=== PATIENT | female | born 1990 | race Caucasian/White ===

== ENCOUNTER 2023-06-08 00:41 | Emergency (ER) | payer MEDICARE, OTHER ==
[~2023-06-08] VITALS: Ht 154.9 cm; Wt 59.0 kg
[2023-06-08 01:43] VITALS: BP 146/93
== END 2023-06-08 02:25 | disposition home or self-care (01) ==
LOC: ER 00:41
DX: S61.212A Laceration without foreign body of right middle finger without damage to nail, initial encounter (principal); W26.0XXA Contact with knife, initial encounter
CPT/HCPCS: 12001; 99282-25

== ENCOUNTER 2023-07-01 02:03 | Emergency (ER) | payer MEDICARE, OTHER ==
[~2023-07-01] VITALS: Ht 157.5 cm; Wt 49.9 kg
[2023-07-01 02:31] VITALS: BP 138/97
[2023-07-01] MEDS ORDERED: CORTISONE60 GM TOP (02:43)
== END 2023-07-01 02:45 | disposition home or self-care (01) ==
LOC: ER 02:03
DX: F15.10 Other stimulant abuse, uncomplicated (principal); L30.9 Dermatitis, unspecified
CPT/HCPCS: 99283